=== PATIENT | female | born 1950 | race Caucasian/White ===

== ENCOUNTER → 2017-03-06 | Outpatient (CLI) | payer MEDICARE ==
[2017-03-06 12:50] LABS: BLOOD UREA NITROGEN 13 mg/dL (7-18)
== END | disposition home or self-care (01) ==
LOC: CFH 09:07
PROVIDERS: ATTEND Physician Assistant
DX: R31.9 Hematuria, unspecified (principal); E87.6 Hypokalemia
CPT/HCPCS: 36415; 82565; 84520